=== PATIENT | male | born 1995 | race Caucasian/White ===

== ENCOUNTER 2017-05-16 21:04 | Emergency (ER) | payer BC ==
[2017-05-16 21:10] VITALS: RESP 16
[2017-05-16] MEDS ORDERED: NS 1,000 ML IV ONE ×2 (21:57)
[2017-05-16] MEDS ORDERED: DEXAMETHASONE 10 MG/ML VIAL IVP ONE (21:57)
[2017-05-16] MEDS ORDERED: IBUPROFEN 600 MG TAB PO ONE (21:57)
[2017-05-16 22:44] LABS: % IMMATURE GRANULYOCYTES 0.2 % (0.0-1.1); ABSOLUTE IMMATURE GRANULOCYTES 0.02 10^3/uL (0.00-0.10); ADD DIFF? NO; ADD MORPH? NO; ADD SCAN? NO; ATYPICAL LYMPHOCYTE FLAG 50 (0-99); FRAGMENT RBC FLAG 0 (0-99); HEMATOCRIT 40.8 % (40.0-51.0); HEMOGLOBIN 14.5 g/dL (13.7-17.5); LEFT SHIFT FLG 0 (0-99); LIPEMIA HEMOLYSIS FLAG 90 (0-99); MEAN CELL HEMOGLOBIN 31.1 pg (27.9-34.1); MEAN CELL HEMOGLOBIN CONCENTR. 35.5 g/dL (32.4-36.7); MEAN CELL VOLUME 87.6 fL (81.5-99.8); MEAN PLATELET VOLUME 9.7 fL (8.7-11.7); PLATELET CLUMPS FLAG 0 (0-99); PLATELET COUNT 168 10^3/uL (150-400); RED BLOOD CELL COUNT 4.66 10^6/uL (4.40-6.38); RED CELL DISTRIBUTION WIDTH 11.6 % (11.5-15.2)
--- NOTE | 2017-05-16 22:56 | EDPHY ---
H & P Stated Complaint: poss strep, recently Rx'd abx Time Seen by Provider: 05/16/17 21:19 HPI/ROS: CHIEF COMPLAINT: sore throat HISTORY OF PRESENT ILLNESS: 22-year-old male presents emergency department complaining of a sore throat, fevers and body aches x5 days. Patient had a negative rapid strep yesterday at the [facility] though was started on penicillin. Patient took a 2nd dose today. He has been intermittently taking Tylenol every 4-6 hours. Patient denies abdominal pain, reports mild nausea, no diarrhea. He denies chest pain, shortness of breath, no cough or nasal congestion. No drooling. REVIEW OF SYSTEMS: A comprehensive 10 point review of systems is otherwise negative aside from elements mentioned in the history of present illness. Source: Patient Exam Limitations: No limitations - Personal History Current Tetanus/Diphtheria Vaccine: Unsure - Medical/Surgical History Hx Asthma: Yes Hx Chronic Respiratory Disease: No Hx Diabetes: No Hx Cardiac Disease: No Hx Renal Disease: No Hx Cirrhosis: No Hx Alcoholism: No Hx HIV/AIDS: No Hx Splenectomy or Spleen Trauma: No Other PMH: PSHx: appendectomy, R ankle cyst removal. PMHx: asthma - Social History Smoking Status: Never smoked - Physical Exam Exam: General: Alert, nontoxic. ENT: Tympanic membranes clear, external auditory canal, external ear and surrounding soft tissue including over the mastoid unremarkable. Nasopharynx is not injected, there is no rhinorrhea. Oropharynx with erythema. There is bilateral exudate. Bilateral moderate tonsillar hypertrophy. No asymmetry. The uvula is midline. No elevation of tongue. There is no hoarseness. No drooling, patient has good control of their oral secretions. No trismus. No stridor. Cardiac: Regular rate and rhythm. Respiratory: Lungs clear to auscultation bilaterally. Neurological: no meningismus. Skin: No rashes. Constitutional: Initial Vital Signs Temperature (C) 38.5 C H 05/16/17 21:07 Heart Rate 106 H 05/16/17 21:07 Respiratory Rate 16 05/16/17 21:07 Blood Pressure 133/75 H 05/16/17 21:07 O2 Sat (%) 97 05/16/17 21:07 O2 Delivery Mode Room Air Allergies/Adverse Reactions: No Known Allergies Allergy (Unverified 05/16/17 21:07) Home Medications: Medication Instructions Recorded Qvar 80 (*) 05/16/17 Medical Decision Making ED Course/Re-evaluation: IV established, patient is given 2 L of normal saline, mono spot is negative, CBC is normal with a normal WBC and normal platelets. Patient is given ibuprofen. He is discharged home with a diagnosis of pharyngitis. I have recommended that he finished his course of antibiotics, alternate Tylenol with ibuprofen, rest and stay hydrated. Patient was given 10 mg of Decadron IV. Temperature down to 37.8. Patient reports feeling much better. He is given return precautions for any drooling, difficulty breathing or swallowing, any new symptoms or concerns. Differential Diagnosis: Diagnosis considered but not limited to strep pharyngitis, viral pharyngitis, mononucleosis, Frankie's angina, peritonsillar abscess, retropharyngeal abscess - Data Points Laboratory Results: Laboratory Results 05/16/17 22:30 05/16/17 05/16/17 22:30 22:10 WBC 8.06 10^3/uL 10^3/uL (3.80-9.50) RBC 4.66 10^6/uL 10^6/uL (4.40-6.38) Hgb 14.5 g/dL g/dL (13.7-17.5) Hct 40.8 % % (40.0-51.0) MCV 87.6 fL fL (81.5-99.8) MCH 31.1 pg pg (27.9-34.1) MCHC 35.5 g/dL g/dL (32.4-36.7) RDW 11.6 % % (11.5-15.2) Plt Count 168 10^3/uL 10^3/uL (150-400) MPV 9.7 fL fL (8.7-11.7) Neut % (Auto) 65.2 % % (39.3-74.2) Lymph % (Auto) 21.2 % % (15.0-45.0) Dundy % (Auto) 12.4 % % (4.5-13.0) Eos % (Auto) 0.5 % L % (0.6-7.6) Baso % (Auto) 0.5 % % (0.3-1.7) Nucleat RBC Rel Count 0.0 % % (0.0-0.2) Absolute Neuts (auto) 5.25 10^3/uL 10^3/uL (1.70-6.50) Absolute Lymphs (auto) 1.71 10^3/uL 10^3/uL (1.00-3.00) Absolute Monos (auto) 1.00 10^3/uL H 10^3/uL (0.30-0.80) Absolute Eos (auto) 0.04 10^3/uL 10^3/uL (0.03-0.40) Absolute Basos (auto) 0.04 10^3/uL 10^3/uL (0.02-0.10) Absolute Nucleated RBC 0.00 10^3/uL 10^3/uL (0-0.01) Immature Gran % 0.2 % % (0.0-1.1) Immature Gran # 0.02 10^3/uL 10^3/uL (0.00-0.10) Monoscreen NEGATIVE (NEGATIVE) Medications Given: Discontinued Medications Dexamethasone (Decadron Injection) 10 mg IVP EDNOW ONE Stop: 05/16/17 21:58 Last Admin: 05/16/17 22:13 Dose: 10 mg Sodium Chloride (Ns) 1,000 mls @ 0 mls/hr IV EDNOW ONE; Wide Open PRN Reason: Protocol Stop: 05/16/17 21:58 Last Admin: 05/16/17 22:12 Dose: 1,000 mls Sodium Chloride (Ns) 1,000 mls @ 0 mls/hr IV EDNOW ONE; Wide Open PRN Reason: Protocol Stop: 05/16/17 21:58 Last Admin: 05/16/17 22:13 Dose: 1,000 mls Ibuprofen (Motrin) 600 mg PO EDNOW ONE Stop: 05/16/17 21:58 Last Admin: 05/16/17 22:05 Dose: 600 mg Departure - Departure Disposition: Home, Routine, Self-Care Clinical Impression: Pharyngitis Qualifiers: Pharyngitis/tonsillitis etiology: unspecified etiology Qualified Code(s): J02.9 - Acute pharyngitis, unspecified Condition: Good Instructions: Pharyngitis (ED) Additional Instructions: Take 600 mg of ibuprofen every 8 hours with food, take 650 mg of Tylenol every 8 hours. Alternate these every 4 hours. Rest, drink plenty of fluids. Return to the emergency department for any drooling, difficulty breathing, worsening symptoms, new symptoms or concerns. Referrals: [facility],. [Clinic] - Follow Up Only If Needed Stand Alone Forms: School Excuse
[2017-05-16 22:57] VITALS: BP 149/86; PULSE 93; TEMP 100; O2SAT 96
== END 2017-05-16 23:46 | disposition home or self-care (01) ==
DX: J02.9 Acute pharyngitis, unspecified (principal); J45.909 Unspecified asthma, uncomplicated; E86.9 Volume depletion, unspecified
CPT/HCPCS: 96374; J1100

== ENCOUNTER → 2017-10-15 | Outpatient (CLI) | payer BC | LOC: BMCIMAGING 19:13 | PROVIDERS: ATTEND Family Medicine | DX: S49.92XA Unspecified injury of left shoulder and upper arm, initial encounter (principal) ==

== ENCOUNTER 2017-11-14 18:46 | Emergency (ER) | payer BC ==
[2017-11-14 18:51] VITALS: O2SAT 97
--- NOTE | 2017-11-14 18:54 | EDPHY ---
HPI/HX/ROS/PE/MDM Narrative: CHIEF COMPLAINT: Abdominal and groin pain HISTORY OF PRESENT ILLNESS: The patient is a 22 y/o male with a history of an appendectomy complaining of sudden onset, intermittent, right groin pain that is radiating into his testicle , onset 2-3 days ago. Physical activity, like walking or snowboarding, aggravates the pain. Nothing in particular alleviates the pain. No testicular swelling, blood in urine, penile discharge, penile sores. No new sexual partners , no history of STI. No trauma history. No fever, chills, chest pain, shortness of breath, palpitations, vomiting, diarrhea, urinary complaints, headache, lightheadedness. REVIEW OF SYSTEMS: Aside from elements discussed in the HPI, a comprehensive 10-point review of systems was reviewed and is negative. PAST MEDICAL HISTORY: Asthma, appendectomy, right ankle cyst removal SOCIAL HISTORY: Student at , originally from [place] VITAL SIGNS: Reviewed by me GENERAL: Well-developed, well-nourished, resting comfortably in no respiratory distress. HEENT: Benign. LUNGS: Clear to auscultation bilaterally, no wheezes, rhonchi or rales. CARDIAC: Regular rate and rhythm, no rubs, murmurs or gallops. ABDOMEN: Soft, nontender, nondistended, bowel sounds normal. BACK: No CVA tenderness. GROIN: Fullness near inguinal ring when he coughs while standing, tenderness along back of right testes near epididymis. EXTREMITIES: No trauma. No edema. Range of motion is normal throughout. NEURO: Alert and oriented, grossly nonfocal. SKIN: Warm and dry, no rash. PSYCHIATRIC: Normal mentation, no agitation. Portions of this note were transcribed by a electromedical equipment technician. I personally performed a history, physical exam, medical decision making, and confirmed accuracy of information the transcribed note. ED Course: The patient is a 22 y/o male with a history of an appendectomy presenting with sudden onset, intermittent, right groin pain that is radiating into his testicle , onset 2-3 days ago. On exam, there is fullness near the right inguinal ring when he coughs while standing and he has tenderness along back of his right testes near the epididymis. Labs and testicular US ordered. Reassessed patient and discussed imaging findings. I have advised him to follow up with Dr. Calabrese, urology, regarding his testicular pain. No hx suggestive of STIs. No penile discharge or discomfort with urination. No evidence of epidydimitis on ultrasound or urine. Will await STI results. Return precautions provided; patient is comfortable with this plan. MDM: Diff dx of patients testicular pain considered including but not limited to torsion, epididymitis, hydrocele, inguinal hernia, orchitis. - Data Points Imaging Results: Imaging Impressions Testicular Ultrasound 11/14/17 19:07 Impression: 1. Normal testicular ultrasound. 2. No evidence for hernia on limited right inguinal exam. Findings and recommendations discussed with Debra Diamond MD at 8:47 PM hour , 11/14/2017. Final report concurs with initial preliminary interpretation. Laboratory Results: 11/14/17 11/14/17 18:45 18:45 Urine Color YELLOW Urine Appearance CLEAR Urine pH 5.0 (5.0-7.5) Ur Specific [place] 1.024 (1.002-1.030) Urine Protein NEGATIVE (NEGATIVE) Urine Ketones NEGATIVE (NEGATIVE) Urine Blood NEGATIVE (NEGATIVE) Urine Nitrate NEGATIVE (NEGATIVE) Urine Bilirubin NEGATIVE (NEGATIVE) Urine Urobilinogen NEGATIVE EU EU (0.2-1.0) Ur Leukocyte Esterase NEGATIVE (NEGATIVE) Urine RBC 1-3 /hpf /hpf (0-3) Urine WBC 1-3 /hpf /hpf (0-3) Ur Epithelial Cells NONE SEEN /lpf /lpf (NONE-1+) Urine Mucus TRACE /lpf /lpf (NONE-1+) Urine Sperm PRESENT /hpf /hpf (NONE SEEN) Urine Glucose NEGATIVE (NEGATIVE) C.trachomatis RNA (TMA) Pending N.gonorrhoeae RNA (TMA) Pending General Time Seen by Provider: 11/14/17 18:51 Initial Vital Signs: Initial Vital Signs Temperature (C) 36.9 C 11/14/17 18:49 Heart Rate 71 11/14/17 18:49 Respiratory Rate 16 11/14/17 18:49 Blood Pressure 104/67 11/14/17 18:49 O2 Sat (%) 97 11/14/17 18:49 O2 Delivery Mode Room Air Allergies/Adverse Reactions: No Known Allergies Allergy (Verified 11/14/17 18:49) Home Medications: Medication Instructions Recorded Qvar 80 (*) 05/16/17 Departure - Departure Disposition: Home, Routine, Self-Care Clinical Impression: Hydrocele of testis Condition: Good Instructions: Hydrocele (ED), Testicle Pain (ED) Additional Instructions: There is a small hydrocele on the left testes There is no abnormalities of the right testicle or epididymis. Please follow up with Urology. I recommend ibuprofen for discomfort, support and elevation. Return to the Emergency Department for fever, worsening pain, inability to urinate or other concerns. Referrals: [facility] ,. [Clinic] - As per Instructions Ramon Calabrese MD [Medical Doctor] - As per Instructions Report Scribed for: Debra Diamond Report Scribed by: Shannan Mclaughlin Date of Report: 11/14/17 Time of Report: 18:52
[2017-11-14 21:11] VITALS: BP 128/53; PULSE 65; RESP 18; TEMP 98.2
[2017-11-15 12:29] LABS: GC AMPLIFICATION GENPROBE NEGATIVE (NEGATIVE)
== END 2017-11-14 21:10 | disposition home or self-care (01) ==
DX: N43.3 Hydrocele, unspecified (principal); J45.909 Unspecified asthma, uncomplicated; Z90.89 Acquired absence of other organs